=== PATIENT | female | born 1980 | race Caucasian/White ===

== ENCOUNTER 2017-08-22 11:18 | Emergency (ER) | payer OTHER ==
[2017-08-22 11:35] VITALS: BP 110/73
--- NOTE | 2017-08-22 12:03 | UC ---
Shoulder Pain HPI - HPI Summary HPI Summary: Patient is 37 year old female , without any significant past medical history who present today with left shoulder pain since yesterday. Pain is loacted in left trapezius and the left upper arm . No neck pain, numbness or tingling . Denies any specific trauma but helped her fried move some stuff in the trailor 2 days ago. Denies any fever, chills, cough chest pain or shortness of breath . No diaphoresis. Denies any abdominal pain , nausea or vomiting , diarrhea or constipation. She has tried over the counter medication without much relief. - History of Current Complaint Chief Complaint: UCUpperExtremity Stated Complaint: SHOULDER PAIN Time Seen by Provider: 08/22/17 11:54 Hx Obtained From: Patient Hx Last Menstrual Period: unknown ?: No - on mirena Onset/Duration: Sudden Onset Timing: Constant Severity Initially: Mild Severity Currently: Moderate Pain Intensity: 6 Pain Scale Used: 0-10 Numeric Character: Sharp, Aching, Spasmodic Aggravating Factor(s): Movement, Abduction, Other - overhead movements Alleviating Factor(s): Rest, OTC Meds Associated Signs And Symptoms: Positive: Negative Related History: Dominant Hand Right - Allergies/Home Medications Allergies/Adverse Reactions: Allergies Allergy/AdvReac Type Severity Reaction Status Date / Time MS Amoxicillin [Amoxicillin] Allergy Severe Airway Verified 08/22/17 11:35 Obstruction MS Penicillins Allergy Severe Airway Verified 08/22/17 11:35 Obstruction PMH/Surg Hx/FS Hx/Imm Hx Previously Healthy: Yes Other Endocrine History: negative Other Cardiovascular History: negative Other Respiratory History: negative Other GI/ History: negative Other Neurological History: negative Psychological History: Anxiety Other Psychological History: negative Other Cancer History: negative - Surgical History Surgical History: Yes Surgery Procedure, Year, and Place: 3 C Sections, 2 D&Cs, Tonsills/adenoids, Ear Tubes x2. - Family History Known Family History: Positive: None - Social History Alcohol Use: Occasionally Substance Use Type: None Smoking Status (MU): Light Every Day Tobacco Smoker Type: Cigarettes Amount Used/How Often: 1/2 PPD Household Exposure Type: Cigarettes - Immunization History Most Recent Influenza Vaccination: never Most Recent Tetanus Shot: up to date Review of Systems Constitutional: Negative Skin: Negative Eyes: Negative ENT: Negative Respiratory: Negative Cardiovascular: Negative Gastrointestinal: Negative Genitourinary: Negative Motor: Negative Neurovascular: Negative Musculoskeletal: Arthralgia, Decreased ROM, Other: - left shoulder pain Neurological: Negative Psychological: Negative Is Patient Immunocompromised?: No All Other Systems Reviewed And Are Negative: Yes Physical Exam Triage Information Reviewed: Yes Appearance: Well-Appearing, Pain Distress Vital Signs: Initial Vital Signs Temp 98.6 F 08/22/17 11:31 Pulse 79 08/22/17 11:31 Resp 18 08/22/17 11:31 BP 110/73 08/22/17 11:31 Pulse Ox 98 08/22/17 11:31 Vital Signs Reviewed: Yes Eye Exam: Normal Eyes: Positive: Conjunctiva Clear ENT: Positive: Hearing grossly normal. Negative: Nasal congestion, Nasal drainage, Trismus, Muffled voice, Hoarse voice Neck exam: Normal Neck: Positive: Supple, Nontender, No Lymphadenopathy. Negative: Tenderness @ Respiratory Exam: Normal Respiratory: Positive: Chest non-tender, Lungs clear, Normal breath sounds Cardiovascular Exam: Normal Cardiovascular: Positive: RRR, No Murmur Musculoskeletal: Positive: Other: - Left Shoulder: Gen: Patient was healthy appearing, alert and well oriented Inspection and Palpation: No visible deformities noted. No evidence of swelling, erythema or atrophy present. There is tenderness over greater tuberosity/subacromial bursa region. No cervical spinal tenderness. There is left trapezius tenderness. ROM: Cervical spine: Full Range of motion in flexion, extension and lateral rotation.Some pain in right lateral rotation in left trapezius. Glenohumeral joint: Full range of motion with assitance, painful Strength: supraspinatus 5/5, Infraspinatus 5/5, subscapularis 5/5, External rotation 5/5. Tone: Normal muscle tone of the shoulder. Special tests: Empty can test negative, Neer sign and Reed test negative, drop arm test negative, lift off test positive for weakness and pain.cross arm test negative, Anterior and posterior drawer test negative. Relocation test negative. Onslow's test negative. Normal distal sensation and pulses. Neurological Exam: Normal Neurological: Positive: Alert Psychological Exam: Normal Psychological: Positive: Age Appropriate Behavior Skin Exam: Normal Shoulder Course/Dx - Course Course Of Treatment: During the visit today, we obtained left shoudler Xrays which is negative for any acute osseous injury . We discussed the findings and further options including corticosteorid injection ofor pain relief . She wantsto hold off on any injection. I will prescribe the Naproxen to the pharmacy and plan to start PT. Patient expressed understanding . - Differential Dx/Diagnosis Differential Diagnosis/HQI/PQRI: Rotator Cuff Injury, Sprain, Strain, Tendonitis Provider Diagnoses: Left shoulder rotator cuff strain / left trapezius strain Discharge - Sign-Out/Discharge Documenting (check all that apply): Discharge/Admit/Transfer - Discharge Plan Condition: Stable Disposition: HOME Prescriptions: Naproxen [Naproxen 500 mg tab] 500 mg PO BID PRN 14 Days #30 tablet.dr IVORY Reason: Pain Patient Education Materials: Rotator Cuff Injury (ED) Referrals: Michela Balderrama NP [Primary Care Provider] - Wang Alan MD [Medical Doctor] - Additional Instructions: Start taking naproxen, with food and water . It has been prescribed to the pharmacy . Start PT, script provided Follow up with your primary care doctor in 1 week . Please follow up with orthopedics if no improvement . Return to Urgent care / ER if symptoms get worse. - Billing Disposition and Condition Condition: STABLE Disposition: Home
--- NOTE | 2017-08-22 12:41 | RAD ---
INDICATION: Left shoulder pain after " lifting" COMPARISON: None. TECHNIQUE: 4 views of the left shoulder were obtained. FINDINGS: The adequately corticated bones are in normal alignment. Joint spaces appear maintained. No fracture, dislocation or focal bony abnormality is seen. IMPRESSION: Normal radiograph of the left shoulder. If the patient's symptoms persist, follow-up imaging is recommended.
== END 2017-08-22 12:35 | disposition home or self-care (01) ==
LOC: UCEAST 11:18
DX: S46.012A Strain of muscle(s) and tendon(s) of the rotator cuff of left shoulder, initial encounter (principal); S46.812A Strain of other muscles, fascia and tendons at shoulder and upper arm level, left arm, initial encounter; X58.XXXA Exposure to other specified factors, initial encounter; Y93.9 Activity, unspecified; Y92.9 Unspecified place or not applicable; Z88.0 Allergy status to penicillin; F17.210 Nicotine dependence, cigarettes, uncomplicated
CPT/HCPCS: 99212; G0463

== ENCOUNTER 2017-12-14 06:05 | Emergency (ER) | payer OTHER ==
--- NOTE | 2017-12-14 07:30 | ED ---
Back Pain - HPI Summary HPI Summary: A 37 y/o F presents to ED with c/o lower back pain onset five days ago and worsening two days ago. The pain radiates to bilat LE, the RLE is worse than LLE. Pert PMHx: sciatica. She states this pain is very different from her baseline, previous episodes of back pain. She took Naproxen, IBP, and used lidocaine patches, hot pads to no relief. Denies fever, urinary sx, bowel changes. Aggravating factors: walking, movement. [facility]: IUD in place. Pt is a smoker. - History of Current Complaint Chief Complaint: EDBackInjuryPain Stated Complaint: LOWER BACK PAIN Time Seen by Provider: 12/14/17 07:18 Hx Obtained From: Patient Hx Last Menstrual Period: unknown Onset/Duration: Gradual Onset, Lasting Days, Still Present Onset/Duration: Started Days Ago Back Pain Location: Is Discrete @ - lower back Severity Initially: Moderate Severity Currently: Severe Pain Intensity: 8 Pain Scale Used: 0-10 Numeric Aggravating Symptom(s): Movement, Walking Alleviating Symptom(s): Nothing Associated Signs And Symptoms: Negative: Fever, Bladder Incontinence, Bowel Incontinence - Allergies/Home Medications Allergies/Adverse Reactions: Allergies Allergy/AdvReac Type Severity Reaction Status Date / Time amoxicillin Allergy Severe Airway Verified 12/14/17 08:32 Obstruction Penicillins Allergy Severe Airway Verified 12/14/17 08:32 Obstruction PMH/Surg Hx/FS Hx/Imm Hx Previously Healthy: No Endocrine/Hematology History: Denies: Hx Diabetes, Hx Thyroid Disease Cardiovascular History: Denies: Hx Congestive Heart Failure, Hx Hypertension Respiratory History: Denies: Hx Asthma, Hx Chronic Obstructive Pulmonary Disease (COPD) GI History: Denies: Hx Ulcer History: Denies: Hx Dialysis, Hx Renal Disease Musculoskeletal History: Reports: Hx Back Problems - Cancer History Cancer Type, Location and Year: HPV pre cancerous cervix, 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 - Surgical History Surgery Procedure, Year, and Place: 3 C Sections, 2 D&Cs, Tonsills/adenoids, Ear Tubes x2. - Immunization History Date of Tetanus Vaccine: utd Date of Influenza Vaccine: none Infectious Disease History: No Infectious Disease History: Denies: Hx Clostridium Difficile, Hx Hepatitis, Hx Human Immunodeficiency Virus (HIV), Hx of Known/Suspected MRSA, Hx Shingles, Hx Tuberculosis, Hx Known/ Suspected VRE, Hx Known/Suspected VRSA, History Other Infectious Disease, Traveled Outside the [place] in Last 30 Days - Family History Known Family History: Positive: Cardiac Disease, Diabetes - Social History Occupation: Employed Full-time Lives: With Family Alcohol Use: Occasionally Substance Use Type: Reports: None Smoking Status (MU): Light Every Day Tobacco Smoker Type: Cigarettes Amount Used/How Often: 1/2 PPD Review of Systems Negative: Fever Negative: Other - neg: bowel changes Negative: dysuria, hematuria, incontinence Positive: Other - pos: lower back pain All Other Systems Reviewed And Are Negative: Yes Physical Exam - Summary Physical Exam Summary: VITAL SIGNS: Reviewed. GENERAL: Patient is a well-developed and nourished female who is lying comfortable in the stretcher. Patient is not in any acute respiratory distress. HEAD AND FACE: No signs of trauma. No ecchymosis, hematomas or skull depressions. No sinus tenderness. EYES: PERRLA, EOMI x 2, No injected conjunctiva, no nystagmus. EARS: Hearing grossly intact. Ear canals and tympanic membranes are within normal limits. MOUTH: Oropharynx within normal limits. NECK: Supple, trachea is midline, no adenopathy, no JVD, no carotid bruit, no c- spine tenderness, neck with full ROM. CHEST: Symmetric, no tenderness at palpation LUNGS: Clear to auscultation bilaterally. No wheezing or crackles. CVS: Regular rate and rhythm, S1 and S2 present, no murmurs or gallops appreciated. ABDOMEN: Soft, non-tender. No signs of distention. No rebound, no guarding, and no masses palpated. Bowel sounds are normal. EXTREMITIES: FROM in all major joints, no edema, no cyanosis or clubbing. Pt has L-spine tenderness and paraspinal muscle tenderness bilaterally. NEURO: Alert and oriented x 3. No acute neurological deficits. Speech is normal and follows commands. SKIN: Dry and warm Triage Information Reviewed: Yes Vital Signs On Initial Exam: Initial Vitals Temp Pulse Resp BP Pulse Ox 97.7 F 83 15 122/78 99 12/14/17 06:10 12/14/17 06:10 12/14/17 06:10 12/14/17 06:10 12/14/17 06:10 Vital Signs Reviewed: Yes Diagnostics - Vital Signs Vital Signs Temp Pulse Resp BP Pulse Ox 12/14/17 06:10 97.7 F 83 15 122/78 99 - Laboratory Result Diagrams: 12/14/17 07:44 12/14/17 07:44 Lab Statement: Any lab studies that have been ordered have been reviewed, and results considered in the medical decision making process. - Radiology L-SPINE Xray Interpretation: Positive (See Comments) - IMPRESSION: Mild DDD. ED provider has reviewed this report. Radiology Interpretation Completed By: Radiologist Re-Evaluation - Re-Evaluation 1 Re-Evaluation Time: 10:00 Change: Improved Comment: Discussing results with pt and plan to D/C. Pt voiced understanding. Back Pain Course/Dx - Course Assessment/Plan: A 37 y/o F presents to ED with c/o lower back pain onset five days ago and worsening two days ago. The pain radiates to bilat LE, the RLE is worse than LLE. Pert PMHx: sciatica. She states this pain is very different from her baseline, previous episodes of back pain. She took Naproxen, IBP, and used lidocaine patches, hot pads to no relief. Denies fever, urinary sx, bowel changes. Aggravating factors: walking, movement. [facility]: IUD in place. Pt is a smoker. Lumbar spine impression: Mild degenerative disc disease. Blood work without any significant abnormality except for WBCs of 12.8, glucose 108, and urinalysis is negative for UTI. In the ED course the patient was given Decadron , Toradol, Norflex and morphine for the pain. After these medications were given the patient's symptoms have significantly improved. At this point the patient is ambulating without any significant abnormality. Therefore the patient will be discharged home with follow-up with primary care physician. Patient is hemodynamically stable alert and oriented 3. I discussed all the findings and test results with the patient. Patient was instructed to return to the emergency room immediately if any of the symptoms return or worsens. Plan of care was discussed with the patient and understands and agrees. All questions were answered at patient satisfaction. There were no further complaints or concerns. Lung exam before discharge: CTA B/L. Good air exchange. No wheezing or crackles heard. CVS: S1 and S2 present. No murmurs appreciated. Patient is alert and oriented x 3. Patient is hemodynamically stable. Patient will be discharged home with follow up PCP in the next 2-3 days - Diagnoses Differential Diagnosis/HQI/PQRI: Positive: Arthritis, Cauda Equina Syndrome, Fracture, Herniated Disc, Strain, Sprain Provider Diagnoses: Back pain Discharge - Sign-Out/Discharge Documenting (check all that apply): Patient Departure - DC - Discharge Plan Condition: Stable Disposition: HOME Prescriptions: Cyclobenzaprine TAB* [Flexeril 10 MG TAB*] 10 mg PO TID PRN #12 tab PRN Reason: Pain Hydrocodone/Acetaminophen [Bradford 5-325 mg] 1 tab PO Q6H PRN #12 tab MDD 4 PRN Reason: Pain methylPREDNISolone [Medrol Dosepak 4 MG*] 0 mg PO .SEE ARIE INSTRUCTION #1 arie Patient Education Materials: Hydrocodone/Acetaminophen (By mouth), Cyclobenzaprine (By mouth), Methylprednisolone (By mouth), Back Pain (ED) Referrals: Michela Balderrama NP [Primary Care Provider] - 3 Days Additional Instructions: Please return to the ED if you experience new or worsening symptoms. Follow up with your primary care provider in 3 days. - Billing Disposition and Condition Condition: STABLE Disposition: Home - Attestation Statements Document Initiated by Scribe: Yes Documenting Scribe: Luis Fernando Davis Provider For Whom Scribe is Documenting (Include Credential): Dr. Keyshawn Irvin MD Scribe Attestation: Luis Fernando Hernandez, scribed for Dr. Keyshawn Irvin MD on 12/15/17 at 0811. Scribe Documentation Reviewed: Yes Provider Attestation: The documentation as recorded by the Luis Fernando vera accurately reflects the service I personally performed and the decisions made by me, Dr. Keyshawn Irvin MD
[2017-12-14] MEDS ORDERED: Dexamethasone IV* 4 MG/ML 1 ML (4 MG) IV SLOW PU ONE (07:50)
[2017-12-14] MEDS ORDERED: Morphine VIAL* 10 MG/ML 1 ML VIAL IV ONE (07:50)
[2017-12-14] MEDS ORDERED: Orphenadrine Citrate IV* 30 MG/ML 2 ML VIAL IV ONE (07:50)
[2017-12-14] MEDS ORDERED: Ketorolac INJ* 30 MG/ML 1 ML VIAL IV PUSH ONE (07:50)
[2017-12-14 07:57] LABS: ABS Basophils 0.1 10^3/ul (0-0.2); ABS Eosinophils 0.1 10^3/ul (0-0.6); ABS Lymphocytes 2.7 10^3/ul (1.0-4.8); ABS Neutrophils 8.9 10^3/ul (1.5-7.7); ABS Nucleated RBC 0 10^3/ul; Eosinophil % 0.9 % (0-6); Hematocrit 45 % (35-47); Lymphocyte % 21.2 % (25-47); Mean Corpuscular HGB Conc 33 g/dl (31-36); Mean Corpuscular Hemoglobin 28 pg (27-31); Mean Corpuscular Volume 85 fL (80-97); Mean Platelet Volume 8.9 um3 (7.4-10.4); Nucleated Red Blood Cells % 0.1; Platelet Count 243 10^3/ul (150-450); Red Blood Count 5.29 10^6/ul (4.00-5.40); Red Cell Distribution Width 14 % (10.5-15); White Blood Count 12.8 10^3/ul (3.5-10.8)
[2017-12-14] MEDS ORDERED: Morphine INJ* 4 MG/ML 1 ML SYRINGE (NEW SYRINGE VERSION) ONE (08:08)
[2017-12-14 08:21] LABS: Urine Appearance Cloudy; Urine Blood Negative (Negative); Urine Color Yellow; Urine Ketones Negative (Negative); Urine Protein Negative (Negative); Urine Specific Gravity 1.019 (1.010-1.030); Urine Urobilinogen Negative (Negative)
[2017-12-14 08:27] LABS: EGFR Non-African American 122.5 (>60)
--- NOTE | 2017-12-14 08:27 | RAD ---
HISTORY: Back pain COMPARISONS: CT dated April 13, 2015 VIEWS: 3 , Frontal, lateral, and coned-down lateral sacral views of the lumbar spine FINDINGS: ALIGNMENT: There is mild levoscoliotic curvature of the spine. VERTEBRAL BODIES: The vertebral body heights are normal. The interpedicular distances are normal. JOINTS: The facet joints are normal. INTERVERTEBRAL DISCS: There is mild diffuse loss of intervertebral disc height. SOFT TISSUE: Unremarkable. OTHER: The pelvis is unremarkable. The lung bases are clear. IMPRESSION: MILD DEGENERATIVE DISC DISEASE.
[2017-12-14 09:58] VITALS: BP 126/73
== END 2017-12-14 09:57 | disposition home or self-care (01) ==
LOC: ED 06:05
DX: M54.5 Low back pain (principal); M51.36 Other intervertebral disc degeneration, lumbar region; F17.210 Nicotine dependence, cigarettes, uncomplicated; Z88.3 Allergy status to other anti-infective agents; Z88.0 Allergy status to penicillin
CPT/HCPCS: 36415; 72100; 80053; 81003; 84702; 85025; 86140; 96374; 96375; 99283; J1100; J1885; J2270; J2360

== ENCOUNTER 2018-09-16 11:31 | Emergency (ER) | payer OTHER ==
[2018-09-16] MEDS ORDERED: NS 0.9% 1000 ML** 1,000 ML IV ONE (11:50)
[2018-09-16] MEDS ORDERED: Dexamethasone IV* 4 MG/ML 5 ML VIAL (20 MG) IVPB ONE (11:53)
[2018-09-16] MEDS ORDERED: Morphine 4 MG/ML VIAL (1 ml) 4 MG/ML VIAL IV ONE (11:53)
[2018-09-16] MEDS ORDERED: Ondansetron INJ* 2 MG/ML VIAL IV ONE (11:53)
[2018-09-16] MEDS ORDERED: Ketorolac INJ* 30 MG/ML 1 ML VIAL IV PUSH ONE (11:53)
--- NOTE | 2018-09-16 12:09 | ED ---
Neck Pain - HPI Summary HPI Summary: The patient is a 38 y/o F presenting to [facility] with a chief complaint of left upper back and neck pain that radiates into the LUE starting yesterday. She reports that a few days ago she had a sciatica flare up with pain in the heel that has since resolved, but yesterday she forcefully closed a car door that has resulted in her current pain. She additionally c/o weakness in the LUE. The aching pain is rated 8/10 in severity. Hx of back problems. Surgical hx of sections, T&A. FHx of cardiac disease, DM. Light every day smoker, occasional EtOH, no substance use. - History of Current Complaint Chief Complaint: EDNeckComplaint Stated Complaint: NECK AND SHOULDER PAIN PER PT Time Seen by Provider: 09/16/18 11:43 Hx Obtained From: Patient Hx Last Menstrual Period: unknown Onset/Duration Of Injury/Symptoms: Hours - yesterday Mechanism Of Injury: Other - forceful closing of car door Timing: Lasting Hours Onset/Duration: Gradual Onset Severity Initially: Mild Severity Currently: Moderate Pain Intensity: 8 Pain Scale Used: 0-10 Numeric Location: Radiates To: - left side of neck and upper back radiating to LUE Character: Aching Aggravating Factors: Nothing Alleviating Factors: Nothing Associated Signs & Symptoms: Positive: Weakness - in LUE - Allergies/Home Medications Allergies/Adverse Reactions: Allergies Allergy/AdvReac Type Severity Reaction Status Date / Time amoxicillin Allergy Severe Airway Verified 12/14/17 08:32 Obstruction Penicillins Allergy Severe Airway Verified 12/14/17 08:32 Obstruction PMH/Surg Hx/FS Hx/Imm Hx Endocrine/Hematology History: Denies: Hx Diabetes, Hx Thyroid Disease Cardiovascular History: Denies: Hx Congestive Heart Failure, Hx Hypercholesterolemia, Hx Hypertension Respiratory History: Denies: Hx Asthma, Hx Chronic Obstructive Pulmonary Disease (COPD) GI History: Denies: Hx Ulcer History: Denies: Hx Dialysis, Hx Renal Disease Musculoskeletal History: Reports: Hx Back Problems - Cancer History Cancer Type, Location and Year: HPV pre cancerous cervix, 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 - Surgical History Surgery Procedure, Year, and Place: 3 C Sections, 2 D&Cs, Tonsills/adenoids, Ear Tubes x2. - Immunization History Date of Tetanus Vaccine: utd Date of Influenza Vaccine: none Infectious Disease History: No Infectious Disease History: Denies: Hx Clostridium Difficile, Hx Hepatitis, Hx Human Immunodeficiency Virus (HIV), Hx of Known/Suspected MRSA, Hx Shingles, Hx Tuberculosis, Hx Known/ Suspected VRE, Hx Known/Suspected VRSA, History Other Infectious Disease, Traveled Outside the [place] in Last 30 Days - Family History Known Family History: Positive: Cardiac Disease, Diabetes - Social History Alcohol Use: Occasionally Hx Substance Use: No Substance Use Type: Reports: None Hx Tobacco Use: Yes Smoking Status (MU): Light Every Day Tobacco Smoker Type: Cigarettes Amount Used/How Often: 1/2 PPD Review of Systems Positive: Other - left upper back and left neck pain radiating to LUE, heel pain (resolved) Positive: Weakness - in LUE All Other Systems Reviewed And Are Negative: Yes Physical Exam - Summary Physical Exam Summary: VITAL SIGNS: Reviewed. GENERAL: Patient is a well-developed and nourished female who is lying comfortable in the stretcher. Patient is not in any acute respiratory distress. HEAD AND FACE: No signs of trauma. No ecchymosis, hematomas or skull depressions. No sinus tenderness. EYES: PERRLA, EOMI x 2, No injected conjunctiva, no nystagmus. EARS: Hearing grossly intact. Ear canals and tympanic membranes are within normal limits. MOUTH: Oropharynx within normal limits. NECK: Tenderness in the sternocleidomastoid and trapezius muscles. Supple, trachea is midline, no adenopathy, no JVD, no carotid bruit, no c-spine tenderness, neck with full ROM. CHEST: Symmetric, no tenderness at palpation LUNGS: Clear to auscultation bilaterally. No wheezing or crackles. CVS: Regular rate and rhythm, S1 and S2 present, no murmurs or gallops appreciated. ABDOMEN: Soft, non-tender. No signs of distention. No rebound, no guarding, and no masses palpated. Bowel sounds are normal. EXTREMITIES: FROM in all major joints, no edema, no cyanosis or clubbing. NEURO: Alert and oriented x 3. No acute neurological deficits. Speech is normal and follows commands. SKIN: Dry and warm. Triage Information Reviewed: Yes Vital Signs On Initial Exam: Initial Vitals Temp Pulse Resp BP Pulse Ox 98.5 F 94 18 155/108 98 09/16/18 11:33 09/16/18 11:33 09/16/18 11:33 09/16/18 11:33 09/16/18 11:33 Vital Signs Reviewed: Yes Diagnostics - Vital Signs Vital Signs Temp Pulse Resp BP Pulse Ox 09/16/18 11:33 98.5 F 94 18 155/108 98 - Laboratory Result Diagrams: 09/16/18 12:16 09/16/18 12:16 Lab Statement: Any lab studies that have been ordered have been reviewed, and results considered in the medical decision making process. - Radiology CXR Radiology Interpretation Completed By: Radiologist Summary of Radiographic Findings: Hyperinflation, consistent with COPD. No active cardiopulmonary disease. ED physician has reviewed this report. - CT Cervical Spine CT CT Interpretation Completed By: Radiologist Summary of CT Findings: Straightening with reversal of the normal cervical lordosis. Mild degenerative disc disease and osteoarthritis. There is no osseous neural foraminal narrowing or central canal stenosis. ED physician has reviewed this report. - EKG 1206 Cardiac Rate: NL - 81 BPM EKG Rhythm: Sinus Rhythm Summary of EKG Findings: Nml axis. No ST elevations. Re-Evaluation - Re-Evaluation First Eval Re-Evaluation Time: 13:06 Change: Improved Comment: I discussed findings with the patient thus far. Her pain is improving. Second Eval Re-Evaluation Time: 13:45 Comment: I discussed discharge home with the patient. Neck Course/Dx - Course Assessment/Plan: The patient is a 38 y/o F presenting to [facility] with a chief complaint of left upper back and neck pain that radiates into the LUE starting yesterday. She reports that a few days ago she had a sciatica flare up with pain in the heel that has since resolved, but yesterday she forcefully closed a car door that has resulted in her current pain. She additionally c/o weakness in the LUE. The aching pain is rated 8/10 in severity. Hx of back problems. Surgical hx of sections, T&A. FHx of cardiac disease, DM. Light every day smoker, occasional EtOH, no substance use. Blood work without any significant abnormality except for WBCs of 11.4. Beta hCG is negative. C-spine CT Impression: Straightening with reversal of the normal cervical lordosis. Mild degenerative disc disease and osteoarthritis. There is no osseous neural foraminal narrowing or central canal stenosis. CXR Impression: Hyperinflation, consistent with COPD. No active cardiopulmonary disease. In the ED course, the patient was given dexamethasone, Toradol, and morphine for the pain. The patient also was given Zofran for nausea. Since all the test results are found to be within normal limits, there are no abnormal findings, and the symptoms have improved, the patient will be discharged home with follow-up with PCP. Patient is hemodynamically stable alert and oriented 3. I discussed all the findings and test results with the patient. Patient was instructed to return to the emergency room immediately if any of the symptoms return worsens. Plan of care was discussed with the patient and understands and agrees. All questions were answered at patient satisfaction. There were no further complaints or concerns. Lung exam before discharge: CTA B/L. Good air exchange. No wheezing or crackles heard. CVS: S1 and S2 present. No murmurs appreciated. Patient is alert and oriented x 3. Patient is hemodynamically stable. Patient will be discharged home with follow up PCP in the next 2-3 days. - Diagnoses Provider Diagnoses: Torticollis, Upper back pain Discharge - Sign-Out/Discharge Documenting (check all that apply): Patient Departure - Patient will be discharged home. Patient Received Moderate/Deep Sedation with Procedure: No - Discharge Plan Condition: Stable Disposition: HOME Prescriptions: Cyclobenzaprine TAB* [Flexeril 10 MG TAB*] 10 mg PO TID PRN #12 tab PRN Reason: Pain HYDROcodone/ACETAMIN 5-325 MG* [[place] 5-325 TAB*] 1 tab PO Q6H PRN #12 tab MDD 4 PRN Reason: Pain methylPREDNISolone [Medrol Dosepak 4 MG*] 0 mg PO .SEE ARIE INSTRUCTION #1 arie Naproxen [Naproxen 500 mg tab] 500 mg PO BID PRN 14 Days #30 tablet.dr IVORY Reason: Pain Patient Education Materials: Spasmodic Torticollis (ED), Back Pain (ED) Referrals: Michela Balderrama NP [Primary Care Provider] - 3 Days Additional Instructions: Please take medications as prescribed. Follow up with your primary care provider in 2-3 days. RETURN TO THE EMERGENCY DEPARTMENT FOR ANY NEW OR WORSENING SYMPTOMS. - Billing Disposition and Condition Condition: STABLE Disposition: Home - Attestation Statements Document Initiated by Scribe: Yes Documenting Scribe: Yulissa Lares Provider For Whom Scribe is Documenting (Include Credential): Dr. Keyshawn Irvin MD Scribe Attestation: I, Yulissa Lares, scribed for Dr. Keyshawn Irvin MD on 09/16/18 at 1347. Scribe Documentation Reviewed: Yes Provider Attestation: The documentation as recorded by the Yulissa vera accurately reflects the service I personally performed and the decisions made by me, Dr. Keyshawn Irvin MD Status of Scribe Document: Ready
[2018-09-16 12:23] LABS: ABS Basophils 0.1 10^3/ul (0-0.2); ABS Eosinophils 0.1 10^3/ul (0-0.6); ABS Lymphocytes 2.4 10^3/ul (1.0-4.8); ABS Monocytes 0.7 10^3/ul (0-0.8); ABS Neutrophils 8.2 10^3/ul (1.5-7.7); Hematocrit 43 % (35-47); Hemoglobin 14.5 g/dL (12.0-16.0); Lymphocyte % 20.7 %; Mean Corpuscular HGB Conc 34 g/dL (31-36); Mean Corpuscular Hemoglobin 30 pg (27-31); Mean Corpuscular Volume 88 fL (80-97); Mean Platelet Volume 8.7 fL (7.4-10.4); Platelet Count 233 10^3/uL (150-450); Red Blood Count 4.91 10^6 /uL (3.70-4.87); Red Cell Distribution Width 15 % (10-15); White Blood Count 11.4 10^3/uL (3.5-10.8)
[2018-09-16 12:44] LABS: ALT 12 U/L (7-52); AST 15 U/L (13-39); Albumin 3.6 g/dL (3.2-5.2); Albumin/Globulin Ratio 1.2 (1-3); Alkaline Phosphatase 79 U/L (34-104); Anion Gap 6 mmol/L (2-11); Blood Urea Nitrogen 13 mg/dL (6-24); CO2 Carbon Dioxide 25 mmol/L (22-32); Calcium 8.6 mg/dL (8.6-10.3); Chloride 105 mmol/L (101-111); Creatine Kinase 53 U/L (10-223); EGFR African American 131.1 (>60); EGFR Non-African American 108.3 (>60); Globulin 2.9 g/dL (2-4); Glucose 100 mg/dL (70-100); Potassium 3.5 mmol/L (3.5-5.0); Sodium 136 mmol/L (135-145); Total Protein 6.5 g/dL (6.4-8.9)
[2018-09-16 12:51] LABS: HCG Pregnancy < 0.60 mIU/mL
[2018-09-16 13:31] LABS: TSH (Thyroid Stimulating Horm) 2.69 mcIU/mL (0.34-5.60)
[2018-09-16 13:37] VITALS: BP 123/82
== END 2018-09-16 13:53 | disposition home or self-care (01) ==
LOC: ED 11:31
DX: M43.6 Torticollis (principal); M54.6 Pain in thoracic spine; M50.30 Other cervical disc degeneration, unspecified cervical region; M47.812 Spondylosis without myelopathy or radiculopathy, cervical region; M62.81 Muscle weakness (generalized); Z32.02 Encounter for pregnancy test, result negative; Z88.0 Allergy status to penicillin; F17.210 Nicotine dependence, cigarettes, uncomplicated
CPT/HCPCS: 36415; 71046; 72125; 80053; 82550; 83605; 84443; 84484; 84702; 85025; 93005; 96361; 96374; 96375; 99283; J1100; J1885; J2270; J2405

== ENCOUNTER 2019-02-15 04:25 | Emergency (ER) | payer OTHER ==
[2019-02-15] MEDS ORDERED: methylPREDNISolone 125 MG* 2 ML VIAL IM ONE (06:06)
[2019-02-15] MEDS ORDERED: Ketorolac *IM* INJ* 60 MG/2 ML VIAL IM ONE (06:06)
[2019-02-15 07:00] VITALS: BP 135/94
--- NOTE | 2019-02-15 07:16 | ED ---
Back Pain - HPI Summary HPI Summary: Patient is a 38-year-old female presenting to the ED with low back pain after shoveling yesterday. She states symptoms were acute onset after she felt a "pop." She has been able to ambulate, however she states it is been becoming increasingly more difficult. She denies any numbness or tingling into the bilateral lower extremities. She does endorse pain to the bilateral lower extremities and endorses weakness. She states she is unable to stand, however on arrival to the ED, it was visualized that she was ambulating. She has been taking ibuprofen and using heating pads without relief. She states she also took a Flexeril from a previous back injury, last evening, which allowed her to sleep. She is never had a herniated disc or other serious back injuries. However, she states she has strained her back in the past. Denies any bladder or bowel dysfunction. She endorses pain directly over the lower spine and more to the left side. She does have a history of sciatica. - History of Current Complaint Chief Complaint: EDBackInjuryPain Stated Complaint: BACK INJURY PER PT Time Seen by Provider: 02/15/19 05:41 Hx Obtained From: Patient Hx Last Menstrual Period: unknown Onset/Duration: Sudden Onset Onset/Duration: Started Days Ago Timing: Constant Back Pain Location: Is Discrete @ - low back Severity Initially: Severe Severity Currently: Severe Pain Intensity: 8 Pain Scale Used: 0-10 Numeric Character: Aching Aggravating Symptom(s): Movement, Lifting Alleviating Symptom(s): Rest, Position Associated Signs And Symptoms: Negative: Redness, Bruising, Fever, Weakness, Numbness, Flank Pain, Bladder Incontinence, Bowel Incontinence, Weight Loss, Pain with Weight Bearing Related History: Previous Back Injury - Risk Factors AAA Risk Factors: Negative TAD Risk Factors: Negative Cauda Equina Risk Factors: Negative Epidural Abscess Risk Factors: Negative - Allergies/Home Medications Allergies/Adverse Reactions: Allergies Allergy/AdvReac Type Severity Reaction Status Date / Time amoxicillin Allergy Severe Airway Verified 02/15/19 04:28 Obstruction Penicillins Allergy Severe Airway Verified 02/15/19 04:28 Obstruction PMH/Surg Hx/FS Hx/Imm Hx Previously Healthy: Yes Endocrine/Hematology History: Denies: Hx Diabetes, Hx Thyroid Disease Cardiovascular History: Denies: Hx Congestive Heart Failure, Hx Hypercholesterolemia, Hx Hypertension Respiratory History: Denies: Hx Asthma, Hx Chronic Obstructive Pulmonary Disease (COPD) GI History: Denies: Hx Ulcer History: Denies: Hx Dialysis, Hx Renal Disease Musculoskeletal History: Reports: Hx Back Problems - Cancer History Cancer Type, Location and Year: HPV pre cancerous cervix, 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 - Surgical History Surgery Procedure, Year, and Place: 3 C Sections, 2 D&Cs, Tonsills/adenoids, Ear Tubes x2. - Immunization History Date of Tetanus Vaccine: utd Date of Influenza Vaccine: none Hx Pertussis Vaccination: No Immunizations Up to Date: Yes Infectious Disease History: No Infectious Disease History: Denies: Hx Clostridium Difficile, Hx Hepatitis, Hx Human Immunodeficiency Virus (HIV), Hx of Known/Suspected MRSA, Hx Shingles, Hx Tuberculosis, Hx Known/ Suspected VRE, Hx Known/Suspected VRSA, History Other Infectious Disease, Traveled Outside the [place] in Last 30 Days - Family History Known Family History: Positive: Cardiac Disease, Diabetes - Social History Occupation: Employed Full-time Lives: With Family Alcohol Use: Occasionally Hx Substance Use: No Substance Use Type: Reports: None Hx Tobacco Use: Yes Smoking Status (MU): Light Every Day Tobacco Smoker Type: Cigarettes Amount Used/How Often: 1/2 PPD Review of Systems Negative: Fever, Chills, Fatigue, Skin Diaphoresis Negative: Palpitations, Chest Pain Positive: no symptoms reported, see HPI. Negative: flank pain, hematuria Positive: Arthralgia. Negative: Myalgia, Decreased ROM, Edema Skin: Negative Neurological: Negative All Other Systems Reviewed And Are Negative: Yes Physical Exam Triage Information Reviewed: Yes Vital Signs On Initial Exam: Initial Vitals Temp Pulse Resp BP Pulse Ox 98.5 F 94 15 135/83 98 02/15/19 04:26 02/15/19 04:26 02/15/19 04:26 02/15/19 04:26 02/15/19 04:26 Vital Signs Reviewed: Yes Appearance: Positive: Pain Distress Skin: Positive: Warm, Skin Color Reflects Adequate Perfusion Head/Face: Positive: Normal Head/Face Inspection Eyes: Positive: EOMI, KISHA, Conjunctiva Clear Neck: Positive: Supple, No Lymphadenopathy Respiratory/Lung Sounds: Positive: Clear to Auscultation, Breath Sounds Present Cardiovascular: Positive: RRR, Pulses are Symmetrical in both Upper and Lower Extremities Musculoskeletal: Positive: Pain @ - low back pain Neurological: Positive: Sensory/Motor Intact, Alert, Oriented to Person Place, Time, Speech Normal Psychiatric: Positive: Normal, Affect/Mood Appropriate AVPU Assessment: Alert Procedures - Sedation Patient Received Moderate/Deep Sedation with Procedure: No Diagnostics - Vital Signs Vital Signs Temp Pulse Resp BP Pulse Ox 02/15/19 06:58 98.1 F 82 22 135/94 99 02/15/19 04:26 98.5 F 94 15 135/83 98 - Laboratory Lab Statement: Any lab studies that have been ordered have been reviewed, and results considered in the medical decision making process. Back Pain Course/Dx - Course Course Of Treatment: Patient is evaluated for acute low back pain which is radiating to the bilateral lower extremities. She endorses weakness and states she is unable to ambulate. Patient was visualized ambulating on arrival and she was able to ambulate in the room. There is no noted deficits or weakness to the bilateral lower extremity is. She denies any bladder or bowel dysfunction. There is some paraspinal tenderness to the low back, without obvious discomfort trusion or step-off. No ecchymosis or signs of trauma. Symptoms are worse with standing straight, better with bending forward slightly. This is likely back strain and she does not exhibit any serious sxs related to cauda equina or compressive cord. She is given toradol and methylprednisolone IM. Toradol given as prescription. She is encouraged low back exercises and will follow-up with her PCP in 3 days. She is given a note for work. - Diagnoses Differential Diagnosis/HQI/PQRI: Positive: Strain, Sprain, Other - sciatica, lumbar radiculopathy. Negative: Cauda Equina Syndrome, Compressive Cord Syndrome, Fracture, Herniated Disc Provider Diagnoses: Low back strain Discharge ED - Sign-Out/Discharge Documenting (check all that apply): Patient Departure - Discharge Plan Condition: Stable Disposition: HOME Prescriptions: Ketorolac TAB * [Toradol TAB *] 10 mg PO Q6H #16 tab Patient Education Materials: Muscle Strain (ED), Lower Back Exercises (ED) Forms: *Work Release Referrals: Michela Balderrama NP [Primary Care Provider] - Additional Instructions: Continue to take Tylenol 650mg three times daily. You are also prescribed Toradol 10mg four times daily. DO NOT TAKE ANY OTHER NSAIDS (IBUPROFEN, ALEVE, NAPROXEN, ETC.) WHILE TAKING THIS MEDICATION. Take these medications intermittently Moist heat to the area Low back exercises - I have given you instructions Stretching will help the most out of everything you can do to improve your symptoms Out of work x 3 days Please follow up with your PCP within this time frame- especially if symptoms fail to improve - Billing Disposition and Condition Condition: STABLE Disposition: Home
== END 2019-02-15 06:58 | disposition home or self-care (01) ==
LOC: ED 04:25
DX: S39.012A Strain of muscle, fascia and tendon of lower back, initial encounter (principal); Y93.H1 Activity, digging, shoveling and raking; Y92.9 Unspecified place or not applicable; F17.210 Nicotine dependence, cigarettes, uncomplicated; Z88.0 Allergy status to penicillin
CPT/HCPCS: 96372; 99282; J1885; J2930